=== PATIENT | male | born 1965 | race African-American/Black ===

== ENCOUNTER 2023-07-30 20:45 | Inpatient (IN) | payer BC ==
--- NOTE | 2023-07-30 21:48 | ED ---
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 -: minute(s) Previous Visits for Alcohol Intoxication?: Yes Recent Trauma: Yes Associated Symptoms: nausea, vomiting, hematemesis Treatments Prior to Arrival: none Chronic Alcohol Use: Yes <Chin Dewitt - Last Filed: 07/30/23 22:55> <Tariq Bunn - Last Filed: 07/31/23 01:04> - General Chief Complaint: Alcohol Stated Complaint: Altered Mental Status Time Seen by Provider: 07/30/23 20:58 - History of Present Illness Initial Comments: This is a 57-year-old male to ER for evaluation patient comes in with severe alcohol intoxication, patient is happily confused, but came in with vomiting allegedly vomiting some blood prior to arrival he started vomiting then started vomiting blood and family became concerned. Patient admits to drinking throughout the day and no other drugs were used, patient has no abdominal pain or chest pain currently (Chin Dewitt) - Related Data Allergies Allergy/AdvReac Type Severity Reaction Status Date / Time No Known Allergies Allergy Verified 07/30/23 20:56 Review of Systems ROS Other: All systems not noted in ROS Statement are negative. <Chin Dewitt - Last Filed: 07/30/23 22:55> ROS Other: All systems not noted in ROS Statement are negative. <Tariq Bunn - Last Filed: 07/31/23 01:04> ROS Statement: Those systems with pertinent positive or pertinent negative responses have been documented in the HPI. Past Medical History Past Medical History: Hypertension Past Surgical History: No Surgical Hx Reported Past Psychological History: Anxiety, Bipolar, Depression Smoking Status: Current every day smoker Past Alcohol Use History: Abuse Past Drug Use History: Marijuana <Chin Dewitt - Last Filed: 07/30/23 22:55> General Exam Limitations: altered mental status General appearance: alert, in no apparent distress, appears intoxicated Head exam: Present: atraumatic, normocephalic, normal inspection Eye exam: Present: normal appearance, PERRL, EOMI. Absent: scleral icterus, conjunctival injection, periorbital swelling ENT exam: Present: normal exam, mucous membranes moist Neck exam: Present: normal inspection. Absent: tenderness, meningismus, lymphadenopathy Respiratory exam: Present: normal lung sounds bilaterally. Absent: respiratory distress, wheezes, rales, rhonchi, stridor Cardiovascular Exam: Present: regular rate, normal rhythm, normal heart sounds. Absent: systolic murmur, diastolic murmur, rubs, gallop, clicks GI/Abdominal exam: Present: soft, normal bowel sounds. Absent: distended, tenderness, guarding, rebound, rigid Extremities exam: Present: normal inspection, full ROM, normal capillary refill. Absent: tenderness, pedal edema, joint swelling, calf tenderness Back exam: Present: normal inspection Neurological exam: Present: alert, oriented X3, CN II-XII intact Psychiatric exam: Present: normal affect, normal mood Skin exam: Present: warm, dry, intact, normal color. Absent: rash <Chin Dewitt - Last Filed: 07/30/23 22:55> Course <Chin Dewitt - Last Filed: 07/30/23 22:55> Vital Signs 07/30/23 07/30/23 07/30/23 20:56 21:00 23:00 Temperature 98.6 F Pulse Rate 77 92 88 Respiratory 18 14 15 Rate Blood Pressure 149/95 149/95 134/85 O2 Sat by Pulse 97 97 97 Oximetry - Reevaluation(s) Reevaluation #1: 07/30/23 22:50 Medical record is reviewed (Chin Dewitt) Reevaluation #2: 07/30/23 22:50 Patient is currently not vomiting blood here in the emergency room and has not had any vomiting of blood here in the ER (Chin Dewitt) Medical Decision Making - Lab Data Result diagrams: 07/30/23 20:57 <Chin Dewitt - Last Filed: 07/30/23 22:55> - Lab Data Result diagrams: 07/30/23 20:57 07/30/23 23:11 <Tariq Bunn - Last Filed: 07/31/23 01:04> - Medical Decision Making Patient care signed out to me by previous shift physician, Dr. Gutierrez,. Briefly, patient is a 57-year-old male presents for alcohol intoxication. Patient evaluated bedside 1:04 AM found to be in stable condition. He is awake alert oriented however inebriated. Patient's alcohol level is 383. States that he does not have a ride. Patient no acute distress. States that his friend left his car in the parking lot for him. Patient is agreeable for observation admission for EtOH intoxication. (Tariq Bunn) - Lab Data Lab Results 07/30/23 07/30/23 07/30/23 Range/Units 20:57 20:57 23:11 WBC 7.1 (3.8-10.6) k/uL RBC 4.90 (4.30-5.90) m/uL Hgb 14.5 (13.0-17.5) gm/dL Hct 46.3 (39.0-53.0) % MCV 94.6 (80.0-100.0) fL MCH 29.6 (25.0-35.0) pg MCHC 31.3 (31.0-37.0) g/dL RDW 14.4 (11.5-15.5) % Plt Count 251 (150-450) k/uL MPV 8.0 Neutrophils % 73 % Lymphocytes % 22 % Monocytes % 3 % Eosinophils % 1 % Basophils % 0 % Neutrophils # 5.1 (1.3-7.7) k/uL Lymphocytes # 1.6 (1.0-4.8) k/uL Monocytes # 0.2 (0-1.0) k/uL Eosinophils # 0.1 (0-0.7) k/uL Basophils # 0.0 (0-0.2) k/uL Sodium 144 (137-145) mmol/L Potassium 3.5 (3.5-5.1) mmol/L Chloride 113 H (98-107) mmol/L Carbon Dioxide 24 (22-30) mmol/L Anion Gap 7 mmol/L BUN 14 (9-20) mg/dL Creatinine 0.81 (0.66-1.25) mg/dL Est GFR (CKD-EPI)AfAm >90 (>60 ml/min/1.73 sqM) Est GFR (CKD-EPI)NonAf >90 (>60 ml/min/1.73 sqM) Glucose 82 (74-99) mg/dL Calcium 7.4 L (8.4-10.2) mg/dL Phosphorus 3.0 (2.5-4.5) mg/dL Magnesium 1.7 (1.6-2.3) mg/dL Total Bilirubin 0.3 (0.2-1.3) mg/dL AST 47 (17-59) U/L ALT 34 (4-49) U/L Alkaline Phosphatase 41 (38-126) U/L Total Protein 5.8 L (6.3-8.2) g/dL Albumin 3.7 (3.5-5.0) g/dL Lipase 432 H (23-300) U/L Serum Alcohol 383 H* mg/dL Disposition Is patient prescribed a controlled substance at d/c from ED?: No <Chin Dewitt - Last Filed: 07/30/23 22:55> Decision Time: 01:04 <Tariq Bunn - Last Filed: 07/31/23 01:04> Clinical Impression: Alcoholic intoxication Disposition: ADMITTED IP TO THIS HOSP Condition: Good Referrals: None,Stated [Primary Care Provider] - 1-2 days
[2023-07-30 22:05] LABS: Basophils % (A) 0 %; Eosinophils # (A) 0.1 k/uL (0-0.7); Eosinophils % (A) 1 %; HCT 46.3 % (39.0-53.0); HGB 14.5 gm/dL (13.0-17.5); Lymphocytes # (A) 1.6 k/uL (1.0-4.8); Lymphocytes % (A) 22 %; MCH 29.6 pg (25.0-35.0); MCHC 31.3 g/dL (31.0-37.0); MCV 94.6 fL (80.0-100.0); Monocytes # (A) 0.2 k/uL (0-1.0); Monocytes % (A) 3 %; Neutrophils # (A) 5.1 k/uL (1.3-7.7); Neutrophils % (A) 73 %; Platelet Count 251 k/uL (150-450); RDW 14.4 % (11.5-15.5); WBC 7.1 k/uL (3.8-10.6)
[2023-07-30] MEDS: SODIUM CHLORIDE 0.9% 500 ML 500 ML IV STA (22:17)
[2023-07-30] MEDS: SODIUM CHLORIDE 0.9% 1,000 ML IV STA ×2 (22:17→22:53)
[2023-07-30] MEDS: PANTOPRAZOLE 40 MG/10 ML VIAL IVP STA (22:17)
[2023-07-30] MEDS: ONDANSETRON 4 MG/2 ML VIAL IVP STA (22:17)
[2023-07-30] MEDS: ONDANSETRON 4 MG ODT STARTER PACK 2 TAB BTL PO STA (23:51)
[2023-07-31 00:27] LABS: ALT 34 U/L (4-49); AST 47 U/L (17-59); African American GFR (CKD) >90 (>60 ml/min/1.73 sqM); Albumin 3.7 g/dL (3.5-5.0); Alkaline Phosphatase 41 U/L (38-126); Anion Gap 7 mmol/L; Blood Urea Nitrogen 14 mg/dL (9-20); Calcium 7.4 mg/dL (8.4-10.2); Carbon Dioxide 24 mmol/L (22-30); Chloride 113 mmol/L (98-107); Glucose 82 mg/dL (74-99); Lipase 432 U/L (23-300); Magnesium 1.7 mg/dL (1.6-2.3); Non-African American GFR(CKD) >90 (>60 ml/min/1.73 sqM); Potassium 3.5 mmol/L (3.5-5.1); Sodium 144 mmol/L (137-145); Total Bilirubin 0.3 mg/dL (0.2-1.3); Total Protein 5.8 g/dL (6.3-8.2)
[2023-07-31] MEDS ORDERED: NALOXONE 0.4 MG/ML 1 ML VIAL IV PRN (01:03)
--- NOTE | 2023-07-31 03:56 | P.HPIM ---
History of Present Illness H&P Date: 07/31/23 Patient is a 57-year-old male with a PMH of extensive alcohol abuse who presents to the emergency room for alcohol intoxication. The patient reports that he recently relapsed after a year of sobriety from alcohol use. Reports drinking hard liquor and significant amounts for most of his life. Reports that he drank about a pint of bourbon earlier today. He denied any additional complaints. Denied experiencing chest discomfort, shortness of breath, fever, chills, cough, nausea, vomiting, abdominal pain, diarrhea. The patient reports that he no longer has a ride to get home. He denies a history of delirium tremens or alcohol withdrawal seizures. Laboratory evaluation revealed a serum alcohol level of 383, lipase 432, chloride 113, and calcium 7.4. ED documentation reviewed and case discussed with ED provider. Review of systems: Pertinent positives and negatives as discussed in HPI, a complete review of systems was performed and all other systems are negative. Physical examination: Vital signs reviewed General: non toxic, no distress, appears at stated age, normal weight Derm: no unusual rashes/lesions, warm Head: atraumatic, normocephalic, symmetric Eyes: EOMI, no lid lag, anicteric sclera, pupils equal round reactive to light ENT: Nose and ears atraumatic Neck: No cervical lymphadenopathy, trachea midline, supple Mouth: no lip lesion, mucus membranes moist Cardiovascular: S1S2 reg, no murmur, positive dorsalis pedis pulse bilateral, no edema Lungs: CTA bilateral, no rhonchi, no rales, no accessory muscle use Abdominal: soft, nontender to palpation, no guarding Ext: muscle strength 5 out of 5 in all 4 extremities grossly, no gross muscle atrophy, no contractures, Neuro: CN II-XI grossly intact, no gross focal neuro deficits Psych: Alert, oriented, appropriate affect Assessment: Alcohol intoxication Elevated lipase, likely mild pancreatitis Imaging: None performed. EKG ordered Data Review: Laboratory evaluation revealed a serum alcohol level of 383, lipase 432, chloride 113, and calcium 7.4. Plan: Cardiac monitoring Fall precautions Continue with IV fluids normal saline 100 cc/h Monitor lipase levels DVT prophylaxis: Lovenox subcu The patient is admitted with an anticipated less than 2 midnight stay for evaluation of alcohol intoxication CODE STATUS: Full Code Discussed with: Patient Anticipated discharge place: Home Past Medical History Past Medical History: Hypertension Past Surgical History: No Surgical Hx Reported Past Psychological History: Anxiety, Bipolar, Depression Smoking Status: Current every day smoker Past Alcohol Use History: Abuse Past Drug Use History: Marijuana Medications and Allergies Allergies Allergy/AdvReac Type Severity Reaction Status Date / Time No Known Allergies Allergy Verified 07/30/23 20:56 Physical Exam Vitals: Vital Signs Temp Pulse Resp BP Pulse Ox 07/30/23 23:00 88 15 134/85 97 07/30/23 21:00 92 14 149/95 97 07/30/23 20:56 98.6 F 77 18 149/95 97 Intake and Output 07/30/23 07/30/23 07/31/23 14:59 22:59 06:59 Other: Weight 80.739 kg Results CBC & Chem 7: 07/30/23 20:57 07/30/23 23:11 Labs: Abnormal Lab Results - Last 24 Hours (Table) 07/30/23 07/30/23 Range/Units 20:57 23:11 Chloride 113 H (98-107) mmol/L Calcium 7.4 L (8.4-10.2) mg/dL Total Protein 5.8 L (6.3-8.2) g/dL Lipase 432 H (23-300) U/L Serum Alcohol 383 H* mg/dL
[2023-07-31] MEDS ORDERED: hydrOXYzine HCL 25 MG TAB PO PRN (08:32)
[2023-07-31] MEDS ORDERED: LORazepam 1 MG TAB PO PRN ×2 (08:39)
[2023-07-31] MEDS ORDERED: LORazepam 0.5 MG TAB PO PRN (08:39)
[2023-07-31] MEDS ORDERED: LORazepam 2 MG/ML INJ IV PRN ×3 (08:39)
[2023-07-31] MEDS ORDERED: ENOXAPARIN 40 MG/0.4 ML SYRINGE SQ SCH (09:00)
[2023-07-31] MEDS ORDERED: PANTOPRAZOLE 40 MG TABLET PO SCH (09:00)
[2023-07-31] MEDS: oxyBUTYnin chloride 5 MG TAB PO SCH (09:11)
[2023-07-31] MEDS: FOLIC ACID 1 MG TAB PO SCH (09:11)
[2023-07-31] MEDS: PANTOPRAZOLE 40 MG/10 ML VIAL IVP SCH (09:11)
[2023-07-31] MEDS: SODIUM CHLORIDE 0.9% 1,000 ML IV SCH (09:11)
[2023-07-31] MEDS: TAMSULOSIN 0.4 MG CAP.ER.24H PO SCH (09:11)
[2023-07-31] MEDS: LOSARTAN 25 MG TAB PO SCH (09:11)
[2023-07-31] MEDS: MULTIVITAMINS, THERA 1 EACH TAB PO SCH (09:11)
[2023-07-31] MEDS: THIAMINE 100 MG/ML 2 ML VIAL IM STA (10:04)
[2023-07-31 10:55] LABS: HCT 40.6 % (39.0-53.0); HGB 12.8 gm/dL (13.0-17.5); MCH 29.9 pg (25.0-35.0); MCHC 31.6 g/dL (31.0-37.0); MCV 94.7 fL (80.0-100.0); Mean Platelet Volume 7.6; Platelet Count 202 k/uL (150-450); RBC 4.29 m/uL (4.30-5.90); RDW 14.1 % (11.5-15.5); WBC 4.8 k/uL (3.8-10.6)
[2023-07-31 11:13] LABS: ALT 35 U/L (4-49); AST 48 U/L (17-59); African American GFR (CKD) >90 (>60 ml/min/1.73 sqM); Albumin 3.9 g/dL (3.5-5.0); Albumin/Globulin Ratio 1.8; Alkaline Phosphatase 59 U/L (38-126); Anion Gap 8 mmol/L; Blood Urea Nitrogen 14 mg/dL (9-20); Calcium 8.6 mg/dL (8.4-10.2); Carbon Dioxide 25 mmol/L (22-30); Chloride 109 mmol/L (98-107); Globulin 2.2 g/dL; Glucose 63 mg/dL (74-99); Lipase 283 U/L (23-300); Magnesium 1.6 mg/dL (1.6-2.3); Non-African American GFR(CKD) >90 (>60 ml/min/1.73 sqM); Sodium 142 mmol/L (137-145); Total Bilirubin 0.4 mg/dL (0.2-1.3); Total Protein 6.1 g/dL (6.3-8.2)
[2023-07-31 11:52] LABS: Glucose,Whole Blood 69 mg/dL (70-110)
[2023-07-31 12:07] LABS: Glucose,Whole Blood 77 mg/dL (70-110)
[2023-07-31] MEDS ORDERED: DEXTROSE 50% SYRINGE 50 ML IVP PRN ×2 (12:19)
[2023-07-31] MEDS: MAGNESIUM SULFATE-D5W PMX 1 GM in DEXTROSE/WATER 1 100ML.BAG IVPB SCH (12:40)
[2023-07-31] MEDS: DEXTROSE 5%-0.45% NACL 1,000 ML IV SCH (12:40)
[2023-07-31 17:14] LABS: Glucose,Whole Blood 120 mg/dL (70-110)
--- NOTE | 2023-07-31 17:50 | P.CONS ---
History of Present Illness - Reason for Consult Consult date: 07/31/23 Hematemesis Requesting physician: Hugo Yanez - Chief Complaint Alcohol intoxication - History of Present Illness This is a pleasant 57-year-old -[place] male who was brought into the emergency department by his friend for concerns of alcohol intoxication and coffee-ground emesis. Patient states he has a history of alcohol abuse and is a daily drinker since his 20s. He states that he has tried to quit in the past and he recently lost his brother and his father and has been starting to drink again. Yesterday he drank about a pint of liquor he was found to be intoxicated and reports that he had 4-5 coffee-ground emesis yesterday. States he has a history of previous coffee-ground emesis about a year ago. He was seen at [facility] which is where he lives and had an upper and lower endoscopy. States EGD was normal and colonoscopy found colon polyps status post polypectomy. He has not had any further coffee-ground emesis and no reported black stool or blood in his stool since coming to the hospital. He denies any abdominal pain, nausea or vomiting at this time. No shortness of breath or chest pain. Admitting hemoglobin was 14.5 with repeat today of 12.8 hematocrit 40.6 platelet count 202,000 sodium 142 potassium 4.0 BUN 14 creatinine 0.83 total bilirubin 0.4 AST 48 ALT 35 alkaline phosphatase 59 lipase 432 on admission to 83 today serum alcohol 383 on admission Review of Systems REVIEW OF SYSTEMS: CARDIOPULMONARY: No chest pain or shortness of breath. Gastrointestinal: No abdominal pain. Nausea and vomiting yesterday 4-5 times with coffee-ground emesis. No rectal bleeding, or melena. GENITOURINARY: No dysuria or hematuria. MUSCULOSKELETAL: Reports normal range of motion., Joint pain. SKIN: No rashes. No jaundice. ENDOCRINE: No chills, fevers. No excessive weight gain or loss. No polydipsia or polyuria. PSYCHIATRIC: Alcohol abuse. Alcohol intoxication. NEUROLOGY: No change in mental status. Denies dizziness, headache. ENT: Vision unremarkable. CONSTITUTIONAL: No recent weight loss. No fever, chills, night sweats. Past Medical History Past Medical History: Hypertension Past Surgical History: No Surgical Hx Reported Past Psychological History: Anxiety, Bipolar, Depression Smoking Status: Current every day smoker Past Alcohol Use History: Abuse Past Drug Use History: Marijuana Medications and Allergies Home Medications Medication Instructions Recorded Confirmed Type Escitalopram [Lexapro] 20 mg PO HS 07/31/23 07/31/23 History Latanoprost [Latanoprost 0.005%] 1 drop BOTH EYES HS 07/31/23 07/31/23 History Losartan [Cozaar] 25 mg PO DAILY 07/31/23 07/31/23 History Naltrexone HCl 50 mg PO HS 07/31/23 07/31/23 History Omeprazole [PriLOSEC] 40 mg PO DAILY 07/31/23 07/31/23 History Tamsulosin HCl [Flomax] 0.4 mg PO BID 07/31/23 07/31/23 History amLODIPine [Norvasc] 10 mg PO HS 07/31/23 07/31/23 History buPROPion XL [Wellbutrin XL] 300 mg PO HS 07/31/23 07/31/23 History hydrOXYzine HCL [Atarax] 25 mg PO TID PRN 07/31/23 07/31/23 History oxyBUTYnin chloride [Ditropan] 5 mg PO BID 07/31/23 07/31/23 History traZODone HCL [Desyrel] 50 mg PO HS 07/31/23 07/31/23 History Allergies Allergy/AdvReac Type Severity Reaction Status Date / Time No Known Allergies Allergy Verified 07/31/23 07:49 Physical Exam Vitals: Vital Signs Temp Pulse Pulse Resp BP BP Pulse Ox 07/31/23 08:54 97.7 F 82 16 138/73 99 07/31/23 08:12 98.0 F 81 16 159/94 96 07/31/23 05:00 51 L 19 129/82 93 L 07/31/23 02:00 68 16 132/74 98 07/30/23 23:00 88 15 134/85 97 07/30/23 21:00 92 14 149/95 97 07/30/23 20:56 98.6 F 77 18 149/95 97 Intake and Output 07/30/23 07/31/23 07/31/23 22:59 06:59 14:59 Other: Weight 80.739 kg General appearance: The patient is alert, oriented, appears in no acute distress. HET: Head is normocephalic and atraumatic. Conjunctiva pink. Sclera anicteric. Neck: Supple without lymphadenopathy. Trachea midline. Heart: Regular. Lungs: Equal expansion, normal respiratory effort. Abdomen: Soft, nontender, nondistended. Skin: No rashes. No jaundice. Extremities: Normal skin color and turgor. No pedal edema. Neurological: No focal deficits. Alert and oriented x3. Results CBC & Chem 7: 07/31/23 10:30 07/31/23 10:30 Labs: Abnormal Lab Results - Last 24 Hours (Table) 07/30/23 07/30/23 Range/Units 20:57 23:11 Chloride 113 H (98-107) mmol/L Calcium 7.4 L (8.4-10.2) mg/dL Total Protein 5.8 L (6.3-8.2) g/dL Lipase 432 H (23-300) U/L Serum Alcohol 383 H* mg/dL Assessment and Plan (1) Coffee ground emesis Narrative/Plan: 57-year-old admitted for alcohol intoxication and coffee-ground emesis with a long history of alcohol abuse over 30 years. Patient has previous history of reported upper GI bleed where he underwent endoscopic evaluation with both upper and lower endoscopy about a year ago at [facility]. He states findings were normal. Likely were dealing with acute alcohol gastritis however need to consider possibility of esophageal varices and in setting of alcohol abuse. Continue to monitor CBC, transfuse for hemoglobin less than 7. Protonix 40 mg twice daily. Will plan for upper endoscopy tomorrow. Current Visit: Yes Status: Acute Code(s): K92.0 - HEMATEMESIS SNOMED Code(s): 92549553 (2) Alcohol abuse Current Visit: Yes Status: Acute Code(s): F10.10 - ALCOHOL ABUSE, UNCOMPLICATED SNOMED Code(s): 91624255 (3) Alcoholic intoxication Current Visit: Yes Status: Acute Code(s): F10.929 - ALCOHOL USE, UNSPECIFIED WITH INTOXICATION, UNSPECIFIED SNOMED Code(s): 25995688 Plan: 1. Continue symptomatic supportive care 2. Clear liquid diet, n.p.o. after midnight 3. Protonix 40 mg twice daily 4. Daily CBC, transfuse for hemoglobin less than 7 5. Obtain INR 6. Recommend alcohol abstinence 7. Monitor for alcohol withdrawal, CIWA protocol 8. Please obtain records from [facility] 9. Will plan for upper endoscopy tomorrow 10. Rest of medical management per primary medical team Thank you for this consultation, further recommendations forthcoming after upper endoscopy. Dr. Yuval Carias I agree with the dictator's note, documented as a scribe by Vera Webb.
[2023-07-31 17:59] LABS: HCT 40.3 % (39.0-53.0); HGB 12.8 gm/dL (13.0-17.5); MCHC 31.9 g/dL (31.0-37.0); MCV 94.1 fL (80.0-100.0); Mean Platelet Volume 8.1; Platelet Count 194 k/uL (150-450); RBC 4.28 m/uL (4.30-5.90); RDW 14.2 % (11.5-15.5); WBC 5.5 k/uL (3.8-10.6)
--- NOTE | 2023-07-31 18:07 | P.PN ---
Subjective Progress Note Date: 07/31/23 Hospital course: Patient is a 57-year-old male with a past medical history of alcohol abuse, hypertension, anxiety, depression, bipolar disorder, nicotine dependence, and daily cannabis use. He presented to the hospital on 07/30/2023 with a chief complaint of alcohol intoxication and hematemesis. Patient reports approximately 4-5 large episodes of coffee-ground hematemesis. Upon arrival to the emergency department patient underwent evaluation. Vital signs upon arrival show blood pressure 149/95, heart rate 77, respiratory rate 18, temp 98.6 F, and SpO2 of 97% on room air. Labs were completed and reviewed. CBC showing stable hemoglobin of 14.5 and platelet count of 251. BMP showing mild hyperchloremia with chloride of 113. Blood glucose was 82. Magnesium was slightly low at 1.7. Liver profile normal findings. Lipase elevated at 432 and serum alcohol level was 383. EKG was completed showing normal sinus rhythm at 67 bpm. Patient was admitted under our services with consultation to gastroenterology for evaluation. Physical exam: Vital signs reviewed and stable. General: Nontoxic, no distress and appears stated age. Derm: Skin warm and dry, normal coloration for ethnicity. Head: Atraumatic, normocephalic and symmetric. Eyes: EOMs intact, no lid lag, and anicteric sclera Mouth: no lip lesions, mucus membranes moist Cardiovascular: regular rate and rhythm with normal S1S2, no murmur, positive posterior tibial pulses bilaterally, and cap refill < 2 seconds. Lungs: Respirations even, regular, and unlabored on room air. Lungs CTA bilaterally, no rhonchi, no rales, no wheezing, and no accessory muscle usage. Abdominal: soft, nontender to palpation, no guarding, no appreciable or ganomegaly Ext: ROM intact. No gross muscle atrophy, no edema, no contractures Neuro: Speech clear, face symmetrical and CN II-XII grossly intact with no noted focal neuro deficits Psych: Alert and oriented to person, place, time, and situation. Appropriate and pleasant affect. 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 -CT abdomen and pelvis without contrast -Monitor H&H and transfuse as needed for hemoglobin less than 7. -Protonix 40 mg IVP twice daily. -Clear liquid diet pending further recommendations from GI. -Blood glucose checks every 4 hours and patient placed on glycemic protocol. -Continued gentle hydration with D5 0.45% NS at 100 cc/hr -SCDs for DVT prophylaxis. Alcohol withdrawal in his alcoholic Alcohol intoxication upon arrival Elevated lipase Hypomagnesemia -Order placed for monitoring of CIWA scores and patient to be medicated with Ativan 0.5 mg every 4 hours as needed for CIWA score of 4-5, Ativan 1 mg every 4 hours for CIWA score of 6-7, Ativan 2 mg every 3 hours CIWA score of 8-9, and Ativan 2 mg every 2 hours forr CIWA score of 10 or greater. -Continuous IV hydration. -Thiamine 100 mg daily, and Multivitamin daily, and Folate 1 mg daily -Seizure, fall, aspiration, and elopement precautions in place. -Urine drug screen -Continued close monitoring of electrolytes and replace as needed. -Telemetry monitoring. Hypertension -Continue daily medication regimen with amlodipine 10 mg nightly and losartan 25 mg daily. Anxiety with depression Bipolar disorder -Continue daily medication regimen with trazodone 50 mg nightly, Lexapro 20 mg nightly, Wellbutrin 300 mg nightly, and hydroxyzine 25 mg 3 times daily as needed for anxiety. Data and imaging reviewed: Repeat morning labs reviewed. CBC showing acute blood loss anemia with initial hemoglobin of 14.5 and current hemoglobin of 12.8. BMP showing improvement of hyperchloremia with chloride decreasing to 109. Blood glucose was 60 wiith repeat glucose checks of 69 and 77. Magnesium is low at 1.6% and orders placed for replacement. Vital signs reviewed. Blood pressure 159/94, heart rate 81, respiratory rate 16, temp 98.0 F, and SpO2 of 96% on room air. CODE STATUS: Full Code DVT prophylaxis: SCDs Anticipated discharge date: Pending clinical course Anticipated discharge place: Home Patient was seen independently by Nurse Pracitioner. This document was prepared using [employer] dictation software. Please allow for errors in communications tech, while rare they do occur. Hugo Yanez NP rendered care for this patient independently, reviewed the findings and plan as documented in the note above. I did not physically speak with or examine the patient on this date. Objective - Vital Signs Vital signs: Vital Signs Temp 98.0 F 07/31/23 08:12 Pulse 81 06/20/24 08:12 Resp 16 07/31/23 08:12 BP 159/94 07/31/23 08:12 Pulse Ox 96 07/31/23 08:12 FiO2 Intake & Output 07/30/23 07/31/23 07/31/23 18:59 06:59 18:59 Weight 80.739 kg - Labs CBC & Chem 7: 07/31/23 17:47 07/31/23 10:30 Labs: Abnormal Lab Results - Last 24 Hours (Table) 07/30/23 07/30/23 Range/Units 20:57 23:11 Chloride 113 H (98-107) mmol/L Calcium 7.4 L (8.4-10.2) mg/dL Total Protein 5.8 L (6.3-8.2) g/dL Lipase 432 H (23-300) U/L Serum Alcohol 383 H* mg/dL
[2023-07-31] MEDS: LATANOPROST 0.005% OPHTH DROPS 2.5 ML BTL BOTH EYES SCH (20:03)
[2023-07-31] MEDS: buPROPion XL 300 MG TAB.ER.24H PO SCH (20:04)
[2023-07-31] MEDS: traZODone HCL 50 MG TAB PO SCH (20:04)
[2023-07-31] MEDS: ESCITALOPRAM 20 MG TAB PO SCH (20:04)
[2023-07-31] MEDS: amLODIPine 10 MG TAB PO SCH (20:04)
[2023-07-31 20:30] LABS: Glucose,Whole Blood 102 mg/dL (70-110)
[2023-08-01 02:19] LABS: Glucose,Whole Blood 121 mg/dL (70-110)
[2023-08-01 05:28] LABS: Glucose,Whole Blood 123 mg/dL (70-110)
[2023-08-01] MEDS: THIAMINE 100 MG TAB PO SCH (08:53)
[2023-08-01 10:45] LABS: BUN/Creat Ratio 8.22 Ratio (12.00-20.00); Blood Urea Nitrogen 7.4 mg/dL (9.0-27.0); Glucose 120 mg/dL (70-110); Magnesium 1.9 mg/dL (1.5-2.4)
[2023-08-01 10:46] LABS: ALT 29 U/L (10-49); AST 30 U/L (14-35); Albumin 3.6 g/dL (3.8-4.9); Albumin/Globulin Ratio 2.25 Ratio (1.60-3.17); Alkaline Phosphatase 45 U/L (41-126); Calcium 8.4 mg/dL (8.7-10.3); Carbon Dioxide 26.8 mmol/L (21.6-31.8); Chloride 102 mmol/L (96-109); Globulin 1.6 g/dL (1.6-3.3); HCT 33.9 % (39.6-50.0); HGB 11.2 g/dL (13.0-17.0); MCH 30.1 pg (27.0-32.0); MCV 91.1 FL (80.0-97.0); Mean Platelet Volume 10.2 FL (9.5-12.2); NRBC Per 100 WBC 0 X 10*3/uL (0.00-0.01); Platelet Count 184 X 10*3/uL (140-440); Potassium 3.3 mmol/L (3.5-5.5); RBC 3.72 X 10*6/uL (4.40-5.60); RDW 14.9 % (11.5-14.5); Sodium 138 mmol/L (135-145); Total Bilirubin 0.7 mg/dL (0.3-1.2); Total Protein 5.2 g/dL (6.2-8.2); WBC 4.41 X 10*3/uL (4.50-10.00)
[2023-08-01 11:13] LABS: Glucose,Whole Blood 125 mg/dL (70-110)
[2023-08-01] MEDS: POTASSIUM CHLORIDE ER 20 MEQ TAB.ER PO STA (11:43)
[2023-08-01 15:18] LABS: Glucose,Whole Blood 133 mg/dL (70-110)
[2023-08-01] MEDS: IV FLUID CONTINUATION 1,000 ML IV ONE (15:41)
[2023-08-01] MEDS ORDERED: PROPOFOL 10 MG/ML 20 ML VIAL IV ONE (15:41)
[2023-08-01] MEDS ORDERED: ONDANSETRON 4 MG/2 ML VIAL ONE (15:41)
[2023-08-01] MEDS ORDERED: LIDOCAINE 2% (PF) 20 MG/ML 5 ML VIAL ONE (15:41)
[2023-08-01] MEDS ORDERED: fentaNYL (PF) 50 MCG/ML 2 ML AMP ONE (15:41)
--- NOTE | 2023-08-01 15:52 | P.PN ---
Subjective Progress Note Date: 08/01/23 Hospital course: Patient is a 57-year-old male with a past medical history of alcohol abuse, hypertension, anxiety, depression, bipolar disorder, nicotine dependence, and daily cannabis use. He presented to the hospital on 07/30/2023 with a chief complaint of alcohol intoxication and hematemesis. Patient reports approximately 4-5 large episodes of coffee-ground hematemesis. Upon arrival to the emergency department patient underwent evaluation. Vital signs upon arrival show blood pressure 149/95, heart rate 77, respiratory rate 18, temp 98.6 F, and SpO2 of 97% on room air. Labs were completed and reviewed. CBC showing stable hemoglobin of 14.5 and platelet count of 251. BMP showing mild hyperchloremia with chloride of 113. Blood glucose was 82. Magnesium was slightly low at 1.7. Liver profile normal findings. Lipase elevated at 432 and serum alcohol level was 383. EKG was completed showing normal sinus rhythm at 67 bpm. Patient was admitted under our services with consultation to gastroenterology for evaluation. Patient scheduled for EGD later today. Physical exam: Patient was seen and fully evaluated at bedside this morning. He was ambulatory in room. Currently denies having any complaints or pain at this time. He is awaiting to be taken down for EGD later this afternoon. Patient denies any further episodes of coffee-ground emesis denies having any black or tarry stools. Vital signs reviewed and stable. General: Nontoxic, no distress and appears stated age. Derm: Skin warm and dry, normal coloration for ethnicity. Head: Atraumatic, normocephalic and symmetric. Eyes: EOMs intact, no lid lag, and anicteric sclera Mouth: no lip lesions, mucus membranes moist Cardiovascular: regular rate and rhythm with normal S1S2, no murmur, positive posterior tibial pulses bilaterally, and cap refill < 2 seconds. Lungs: Respirations even, regular, and unlabored on room air. Lungs CTA bilaterally, no rhonchi, no rales, no wheezing, and no accessory muscle usage. Abdominal: soft, nontender to palpation, no guarding, no appreciable organomegaly Ext: ROM intact. No gross muscle atrophy, no edema, no contractures Neuro: Speech clear, face symmetrical and CN II-XII grossly intact with no noted focal neuro deficits Psych: Alert and oriented to person, place, time, and situation. Appropriate and pleasant affect. Assessment and Plan of Care: GI bleed Acute blood loss anemia -Gastroenterology following, discussed plan of care with gastroenterology HEAVY [employer] MECH[employer]IC plans for EGD later this afternoon -Continue to monitor H&H and transfuse as needed for hemoglobin less than 7. Currently hemoglobin is stable at 11.2 from initial 14.5 upon arrival -Protonix 40 mg IVP twice daily. -Clear liquid diet pending further recommendations from GI. -SCDs for DVT prophylaxis. Alcohol withdrawal in his alcoholic Alcohol intoxication upon arrival Elevated lipase Hypokalemia Hypomagnesemia, resolved Hypoglycemia, resolved -Continue monitoring of CIWA scores and patient to be medicated with Ativan 0.5 mg every 4 hours as needed for CIWA score of 4-5, Ativan 1 mg every 4 hours for CIWA score of 6-7, Ativan 2 mg every 3 hours CIWA score of 8-9, and Ativan 2 mg every 2 hours forr CIWA score of 10 or greater. -Continuous IV hydration with D5.45% normal saline at 100 cc/h with continued blood glucose checks every 4 hours. -Thiamine 100 mg daily, and Multivitamin daily, and Folate 1 mg daily -Seizure, fall, aspiration, and elopement precautions in place. -Continued close monitoring of electrolytes and replace as needed. -Telemetry monitoring. Hypertension -Continue daily medication regimen with amlodipine 10 mg nightly and losartan 25 mg daily. Anxiety with depression Bipolar disorder -Continue daily medication regimen with trazodone 50 mg nightly, Lexapro 20 mg nightly, Wellbutrin 300 mg nightly, and hydroxyzine 25 mg 3 times daily as needed for anxiety. Data and imaging reviewed: Repeat morning labs reviewed. CBC showing acute blood loss anemia with hemoglobin of 11.2. BMP showing hypokalemia with potassium of 3.3 and stable glucose of 120 on D5 0.45% normal saline infusion. Magnesium normal findings at 1.9. Liver profile showing hypoalbuminemia with albumin of 3.6. Vital signs reviewed. Blood pressure 131/75, heart rate 53, respiratory rate 16, temp 97.7 F, and SpO2 of 99% on room air. CODE STATUS: Full Code DVT prophylaxis: SCDs Anticipated discharge date: Pending completion of EGD this afternoon and further recommendations from GI, tentatively plan for discharge likely within the next [address]: Home Patient was seen independently by Nurse Pracitioner. This document was prepared using [employer] dictation software. Please allow for errors in microbiology soil scientist, while rare they do occur. I reviewed the documentation as provided by the CAMI above, who is the original author of this note. I agree with the documented assessment and plan, with the following changes: none Objective - Vital Signs Vital signs: Vital Signs Temp 97.7 F 08/01/23 07:00 Pulse 53 L 08/01/23 07:00 Resp 16 08/01/23 07:00 BP 131/75 08/01/23 07:00 Pulse Ox 99 08/01/23 07:00 FiO2 Intake & Output 07/31/23 08/01/23 08/01/23 18:59 06:59 18:59 Intake Total 1001 Balance 1001 Weight 80.739 kg Intake: Oral 1001 Other: Voiding Method Toilet # Voids 3 2 - Labs CBC & Chem 7: 08/02/23 06:38 08/02/23 06:38 Labs: Abnormal Lab Results - Last 24 Hours (Table) 07/31/23 07/31/23 07/31/23 Range/Units 10:30 10:30 11:50 RBC 4.29 L (4.30-5.90) m/uL Hgb 12.8 L (13.0-17.5) gm/dL Chloride 109 H (98-107) mmol/L Glucose 63 L (74-99) mg/dL POC Glucose (mg/dL) 69 L (70-110) mg/dL Total Protein 6.1 L (6.3-8.2) g/dL 07/31/23 07/31/23 08/01/23 Range/Units 17:12 17:47 02:17 RBC 4.28 L (4.30-5.90) m/uL Hgb 12.8 L (13.0-17.5) gm/dL Chloride (98-107) mmol/L Glucose (74-99) mg/dL POC Glucose (mg/dL) 120 H 121 H (70-110) mg/dL Total Protein (6.3-8.2) g/dL 08/01/23 Range/Units 05:27 RBC (4.30-5.90) m/uL Hgb (13.0-17.5) gm/dL Chloride (98-107) mmol/L Glucose (74-99) mg/dL POC Glucose (mg/dL) 123 H (70-110) mg/dL Total Protein (6.3-8.2) g/dL
--- NOTE | 2023-08-01 15:59 | P.PCN ---
Date of Procedure: 08/01/23 Procedure(s) Performed: BRIEF HISTORY: Patient is a 57-year-old, pleasant, admitted to hospital with multiple episodes of coffee-ground emesis. History of heavy alcohol abuse. Scheduled for an upper endoscopy to evaluate further.. PROCEDURE PERFORMED: Esophagogastroduodenoscopy. PREOPERATIVE DIAGNOSIS: Coffee-ground emesis IV sedation per anesthesia. PROCEDURE: After informed consent was obtained, the patient was brought into the endoscopy unit. IV sedation was administered by Anesthesia under continuous monitoring. Initially the Olympus GIF-140 video endoscope was inserted into the mouth. Esophagus intubated without any difficulty. It was gradually advanced into the stomach and duodenum and carefully examined. The bulb and the second part of the duodenum appeared normal. The scope at this time was withdrawn to the stomach, adequately insufflated with air, and upon careful examination, mucosa of the antrum, body, cardia and the fundus appeared normal. The scope was then withdrawn into the esophagus. The GE junction was located at 39 cm from the incisors. No hernia noted. The esophagus appeared normal. There were no erosions or ulcerations seen there was small distal esophageal varices with no stigmata of recent bleed and the patient tolerated the procedure well. IMPRESSION: 1. Small hiatal hernia. 2. Very small distal esophageal varices with no active bleeding or stigmata of bleeding. RECOMMENDATIONS: The findings of this examination were discussed with the patient. Diet will be advanced as tolerated. Advised to remain abstinent from alcohol. If hemoglobin remains significantly discharged home..
[2023-08-01] MEDS: LACTATED RINGERS 1,000 ML IV ONE (16:05)
[2023-08-01 17:29] LABS: Glucose,Whole Blood 108 mg/dL (70-110)
[2023-08-01 22:17] LABS: Glucose,Whole Blood 109 mg/dL (70-110)
[2023-08-02 01:07] LABS: Glucose,Whole Blood 119 mg/dL (70-110)
[2023-08-02 06:12] LABS: Glucose,Whole Blood 120 mg/dL (70-110)
[2023-08-02 07:35] LABS: HCT 35.8 % (39.0-53.0); HGB 11.5 gm/dL (13.0-17.5); MCH 30.6 pg (25.0-35.0); MCV 95.4 fL (80.0-100.0); Platelet Count 166 k/uL (150-450); RBC 3.75 m/uL (4.30-5.90); RDW 14.3 % (11.5-15.5); WBC 4.8 k/uL (3.8-10.6)
[2023-08-02 08:06] LABS: ALT 33 U/L (4-49); AST 37 U/L (17-59); African American GFR (CKD) >90 (>60 ml/min/1.73 sqM); Albumin/Globulin Ratio 1.3; Alkaline Phosphatase 43 U/L (38-126); Anion Gap 4 mmol/L; Blood Urea Nitrogen 3 mg/dL (9-20); Calcium 8.7 mg/dL (8.4-10.2); Carbon Dioxide 26 mmol/L (22-30); Chloride 108 mmol/L (98-107); Globulin 2.3 g/dL; Glucose 101 mg/dL (74-99); Magnesium 1.6 mg/dL (1.6-2.3); Non-African American GFR(CKD) >90 (>60 ml/min/1.73 sqM); Potassium 3.5 mmol/L (3.5-5.1); Sodium 138 mmol/L (137-145); Total Bilirubin 0.6 mg/dL (0.2-1.3); Total Protein 5.3 g/dL (6.3-8.2)
[2023-08-02 08:23] VITALS: BP 124/71; PULSE 54; RESP 16; TEMP 98
[2023-08-02] MEDS: MAGNESIUM OXIDE 400 MG TAB PO STA (12:22)
[2023-08-02] MEDS: MAGNESIUM SULFATE-D5W PMX 1 GM in DEXTROSE/WATER 1 100ML.BAG IVPB ONE (12:22)
[2023-08-02] MEDS: POTASSIUM CHLORIDE ER 20 MEQ TAB.ER PO STA (12:22)
--- NOTE | 2023-08-02 13:16 | P.DS ---
Providers Date of admission: 08/01/23 18:31 Expected date of discharge: 08/02/23 Attending physician: Gia Sheldon MD Consults: 07/31/23 08:37 Consult Physician Routine Consulting Provider: Shabnam Carias Consult Reason/Comments: reports of hematemesis 4 or 5 episodes Do you want consulting provider notified?: Yes Primary care physician: Stated None Hospital Course: Discharge Diagnosis: GI bleed, esophageal varices Acute blood loss anemia. Alcohol withdrawal in his alcoholic Alcohol intoxication upon arrival Elevated lipase Hypokalemia Hypomagnesemia Hypoglycemia, resolved Hypertension Anxiety with depression Bipolar disorder Hospital course: Patient is a 57-year-old male with a past medical history of alcohol abuse, hypertension, anxiety, depression, bipolar disorder, nicotine dependence, and daily cannabis use. He presented to the hospital on 07/30/2023 with a chief complaint of alcohol intoxication and hematemesis. Patient reports approximat agueda 4-5 large episodes of coffee-ground hematemesis. Upon arrival to the emergency department patient underwent evaluation. Vital signs upon arrival show blood pressure 149/95, heart rate 77, respiratory rate 18, temp 98.6 F, and SpO2 of 97% on room air. Labs were completed and reviewed. CBC showing stable hemoglobin of 14.5 and platelet count of 251. BMP showing mild hyperchloremia with chloride of 113. Blood glucose was 82. Magnesium was slightly low at 1.7. Liver profile normal findings. Lipase elevated at 432 and serum alcohol level was 383. EKG was completed showing normal sinus rhythm at 67 bpm. Patient was admitted under our services with consultation to gastroenterology for evaluation. Patient underwent EGD on 08/01/2023 showing a small hiatal hernia and small distal esophageal varices with no active bleeding. Patient's diet was advanced and he was again monitored overnight with repeat morning hemoglobin. Patient had no further episodes of hematemesis since initia l arrival to our facility. Hemoglobin is stable at 11.5. Patient has been cleared by gastroenterology and is medically cleared for discharge at this time. Patient to follow-up with PCP in 1 to 2 days and with solar installation crew supervisor in 2 weeks. Patient was strongly advised to avoid any and all alcohol use. Physical exam: Vital signs reviewed and stable. General: Nontoxic, no distress and appears stated age. Derm: Skin warm and dry, normal coloration for ethnicity. Head: Atraumatic, normocephalic and symmetric. Eyes: EOMs intact, no lid lag, and anicteric sclera Mouth: no lip lesions, mucus membranes moist Cardiovascular: regular rate and rhythm with normal S1S2, no murmur, positive posterior tibial pulses bilaterally, and cap refill < 2 seconds. Lungs: Respirations even, regular, and unlabored on room air. Lungs CTA bilaterally, no rhonchi, no rales, no wheezing, and no accessory muscle usage. Abdominal: soft, nontender to palpation, no guarding, no appreciable organomegaly Ext: ROM intact. No gross muscle atrophy, no edema, no contractures Neuro: Speech clear, face symmetrical and CN II-XII grossly intact with no noted focal neuro deficits Psych: Alert and oriented to person, place, time, and situation. Appropriate and pleasant affect. A total of 34 minutes of time were spent preparing this complex discharge summary. Pt was discharged on 08/02/2023 at 9:37 AM. Patient was seen independently by Nurse Practitioner. This document was prepared using [employer] dictation software. Please allow for errors in forensic economist while rare they do occur. I reviewed the documentation as provided by the CAMI above, who is the original author of this note. I agree with the documented assessment and plan, with the following changes: none Patient Condition at Discharge: Stable Plan - Discharge Summary Discharge Rx Participant: Yes New Discharge Prescriptions: Continue Tamsulosin HCl [Flomax] 0.4 mg PO BID Omeprazole [PriLOSEC] 40 mg PO DAILY Losartan [Cozaar] 25 mg PO DAILY Latanoprost [Latanoprost 0.005%] 1 drop BOTH EYES HS buPROPion XL [Wellbutrin XL] 300 mg PO HS oxyBUTYnin chloride [Ditropan] 5 mg PO BID hydrOXYzine HCL [Atarax] 25 mg PO TID PRN PRN Reason: Anxiety Naltrexone HCl 50 mg PO HS traZODone HCL [Desyrel] 50 mg PO HS amLODIPine [Norvasc] 10 mg PO HS Escitalopram [Lexapro] 20 mg PO HS Discharge Medication List Escitalopram [Lexapro] 20 mg PO HS 07/31/23 [History] Latanoprost [Latanoprost 0.005%] 1 drop BOTH EYES HS 07/31/23 [History] Losartan [Cozaar] 25 mg PO DAILY 07/31/23 [History] Naltrexone HCl 50 mg PO HS 07/31/23 [History] Omeprazole [PriLOSEC] 40 mg PO DAILY 07/31/23 [History] Tamsulosin HCl [Flomax] 0.4 mg PO BID 07/31/23 [History] amLODIPine [Norvasc] 10 mg PO HS 07/31/23 [History] buPROPion XL [Wellbutrin XL] 300 mg PO HS 07/31/23 [History] hydrOXYzine HCL [Atarax] 25 mg PO TID PRN 07/31/23 [History] oxyBUTYnin chloride [Ditropan] 5 mg PO BID 07/31/23 [History] traZODone HCL [Desyrel] 50 mg PO HS 07/31/23 [History] Follow up Appointment(s)/Referral(s): Nii Bishop III, MD [STAFF PHYSICIAN] - 1 Week (schedule appointment to establish care with PCP and post-hospitalization follow up) Shabnam Carias MD [STAFF PHYSICIAN] - 1 Week Patient Instructions/Handouts: Alcohol Intoxication (DC), Alcohol Withdrawal (DC), Esophageal Varices (DC) Discharge/Stand Alone Forms: AA Meetings [address] - [facility], AA Meetings [place], Who Do I Call?, Community Resources, Outpatient Counseling, Inp Substance Abuse Facilities, Area PCPs Discharge Disposition: HOME SELF-CARE
== END 2023-08-02 11:05 | disposition home or self-care (01) | DRG 368 ==
LOC: EC 20:45 → UNDOADMOB 07-31 01:03 → 6NMEDSUR 07-31 01:03 → INTOOBSV 08-01 18:31 → OBSVTOIN 08-01 18:31 → UNDODISOB 08-02 11:05
PROVIDERS: ADMIT Internal Medicine; ATTEND Internal Medicine
PROC: 0DJ08ZZ Inspection of Upper Intestinal Tract, Via Natural or Artificial Opening Endoscopic (ICD-10-PCS; principal; 2023-08-01 14:30)
DX: I85.01 Esophageal varices with bleeding (principal); K85.90 Acute pancreatitis without necrosis or infection, unspecified; D62 Acute posthemorrhagic anemia; F10.239 Alcohol dependence with withdrawal, unspecified; E16.2 Hypoglycemia, unspecified; E83.42 Hypomagnesemia; E87.6 Hypokalemia; E87.8 Other disorders of electrolyte and fluid balance, not elsewhere classified; F10.229 Alcohol dependence with intoxication, unspecified; Y90.8 Blood alcohol level of 240 mg/100 ml or more; F17.200 Nicotine dependence, unspecified, uncomplicated; F31.9 Bipolar disorder, unspecified; R74.8 Abnormal levels of other serum enzymes; F41.9 Anxiety disorder, unspecified; I10 Essential (primary) hypertension; K44.9 Diaphragmatic hernia without obstruction or gangrene; Z86.010 Personal history of colon polyps; Z79.899 Other long term (current) drug therapy
CPT/HCPCS: 36415; 43235; 80053; 80320; 83690; 83735; 84100; 85025; 85027; 85610; 93005; 96374; 96375; 99285